=== PATIENT | male | born 1975 | race Caucasian/White ===

== ENCOUNTER 2017-03-21 19:23 | Emergency (ER) | payer MEDICAID ==
[2017-03-21 19:49] VITALS: BP 142/86
--- NOTE | 2017-03-21 20:00 | EDM.PDOC ---
ED HPI GENERAL MEDICAL PROBLEM - General Chief Complaint: General Stated Complaint: SUICIDAL Time Seen by Provider: 03/21/17 19:30 Source of Information: Reports: Patient, Family, Old Records History Limitations: Reports: Intoxication - History of Present Illness INITIAL COMMENTS - FREE TEXT/NARRATIVE: Artem comes to [facility] ED following relapse of drinking alcohol over the past 2 mos. He has lost employment for nonattendance, and did not follow thru with relapse prevention managment including Disulfiram and AA. He completed [facility] treatment in [facility] earlier this year. He also uses cannabis, but denies other drug abuse. He initially reported sxs of suicidal ideation without plan, proximity or lethality. - Related Data Allergies Allergy/AdvReac Type Severity Reaction Status Date / Time No Known Allergies Allergy Verified 03/21/17 19:43 Home Meds: Home Meds LORazepam [Ativan] 1 mg PO Q4H PRN #7 tab 09/25/16 [Rx] Past Medical History - Past Health History Medical/Surgical History: Denies Medical/Surgical History Cardiovascular History: Reports: Heart Murmur Musculoskeletal History: Reports: Back Pain, Chronic Neurological History: Reports: Other (See Below) Other Neuro History: head injury as child Psychiatric History: Reports: Addiction Other Psychiatric History: has alcohol problem since he was 8 years old. - Infectious Disease History Infectious Disease History: Reports: Chicken Pox Social & Family History - Family History Family Medical History: Noncontributory - Tobacco Use Smoking Status *Q: Current Every Day Smoker Years of Tobacco use: 20 Packs/Tins Daily: 0.5 Used Tobacco, but Quit: No Second Hand Smoke Exposure: Yes - Alcohol Use Days Per Week of Alcohol Use: 2 Number of Drinks Per Day: 5 Total Drinks Per Week: 10 - Recreational Drug Use Recreational Drug Use: No Drug Use in Last 12 Months: No Recreational Drug Type: Reports: Marijuana/Hashish - Living Situation & Occupation Living situation: Reports: Occupation: Employed ED ROS GENERAL - Review of Systems Review Of Systems: See Below Constitutional: Reports: Malaise HEENT: Reports: No Symptoms Respiratory: Reports: No Symptoms Cardiovascular: Reports: No Symptoms Endocrine: Reports: No Symptoms GI/Abdominal: Reports: No Symptoms : Reports: No Symptoms Musculoskeletal: Reports: No Symptoms Skin: Reports: No Symptoms Neurological: Reports: Tremors (occur when off ETOH) Psychiatric: Reports: Agitation, Anxiety, Mood Lability Hematologic/Lymphatic: Reports: No Symptoms Immunologic: Reports: No Symptoms ED EXAM, GENERAL - Physical Exam Exam: See Below Exam Limited By: Intoxication General Appearance: Alert, WD/WN, Anxious Eye Exam: Bilateral Eye: Normal Inspection, PERRL Ears: Normal External Exam Nose: Normal Inspection Throat/Mouth: Normal Inspection, Normal Oropharynx Head: Normocephalic Neck: Normal Inspection, Supple Respiratory/Chest: Lungs Clear, Normal Breath Sounds, Chest Non-Tender Cardiovascular: Regular Rate, Rhythm, No Murmur GI/Abdominal: Normal Bowel Sounds, Soft, Non-Tender, No Organomegaly, No Distention, No Mass (Male) Exam: Deferred Rectal (Males) Exam: Deferred Back Exam: Normal Inspection, Full Range of Motion Extremities: Normal Inspection, Normal Range of Motion Neurological: Alert, Oriented, CN II-XII Intact, Normal Gait, No Motor/Sensory Deficits Psychiatric: Anxious Skin Exam: Warm, Dry, Intact Lymphatic: No Adenopathy Course - Vital Signs Text/Narrative:: Artem reported some suicidal ideation without plan, proximity, or lethality. [facility] had a bed available, but he refused treatment, and signed out AMA. Last Recorded V/S: Last Vital Signs Temp 36.8 C 03/21/17 19:30 Pulse 88 03/21/17 19:30 Resp 18 03/21/17 19:30 BP 142/86 H 03/21/17 19:30 Pulse Ox - Orders/Labs/Meds Orders: Active Orders 24 hr Category Date Time Status Patient Status Manage Transfer [TRANSFER] Routine ADT 03/21/17 19:53 Active ACETAMINOPHEN [CHEM] Stat Lab 03/21/17 20:00 Received BASIC METABOLIC PANEL,BMP [CHEM] Stat Lab 03/21/17 20:00 Received Blood Alcohol [ETHANOL BLOOD MEDICAL] [CHEM] Stat Lab 03/21/17 20:00 Received SALICYLATE [CHEM] Stat Lab 03/21/17 20:00 Received TSH ULTRASENSITIVE [CHEM] Stat Lab 03/21/17 20:00 Received Labs: Laboratory Tests 03/21/17 03/21/17 Range/Units 19:45 20:00 WBC 7.6 (4.5-12.0) X10-3/uL RBC 4.61 (4.30-5.75) x10(6)uL Hgb 15.3 (11.5-15.5) g/dL Hct 44.7 (30.0-51.3) % MCV 97.1 H (80-96) fL MCH 33.3 (27.7-33.6) pg MCHC 34.3 (32.2-35.4) g/dL RDW 14.7 (11.5-15.5) % Plt Count 244 (125-369) X10(3)uL MPV 7.5 (7.4-10.4) fL Neut % (Auto) 42.7 L (46-82) % Lymph % (Auto) 45.9 H (13-37) % [place] % (Auto) 8.1 (4-12) % Eos % (Auto) 3 (1.0-5.0) % Baso % (Auto) 1 (0-2) % Neut # (Auto) 3.2 (1.6-8.3) # Lymph # (Auto) 3.5 (0.6-5.0) # [place] # (Auto) 0.6 (0.0-1.3) # Eos # (Auto) 0.2 (0.0-0.8) # Baso # (Auto) 0.1 (0.0-0.2) # Urine Opiates Screen Negative (NEGATIVE) Ur Oxycodone Screen Negative (NEGATIVE) Ur Propoxyphene Screen Negative (NEGATIVE) Ur Barbituates Screen Negative (NEGATIVE) Ur Tricyclics Screen Negative (NEGATIVE) Ur Phencyclidine Scrn Negative (NEGATIVE) Ur Amphetamine Screen Negative (NEGATIVE) Urine MDMA Screen Negative (NEGATIVE) U Benzodiazepines Scrn Negative (NEGATIVE) U Cocaine Metab Screen Negative (NEGATIVE) U Marijuana (THC) Screen Positive H (NEGATIVE) Departure - Departure Time of Disposition: 20:20 Disposition: Against Medical Advice 07 Condition: poor Clinical Impression: Alcohol dependence Qualifiers: Complication of substance-induced condition: uncomplicated - Discharge Information Forms: ED Department Discharge - Problem List & Annotations (1) Alcohol abuse SNOMED Code(s): 58092275 Code(s): F10.10 - ALCOHOL ABUSE, UNCOMPLICATED Status: Acute Current Visit: No Annotation/Comment:: Artem signed out AMA. - Problem List Review Problem List Initiated/Reviewed/Updated: Yes - My Orders Last 24 Hours: My Active Orders 03/21/17 19:53 Patient Status Manage Transfer [TRANSFER] Routine 03/21/17 20:00 ACETAMINOPHEN [CHEM] Stat BASIC METABOLIC PANEL,BMP [CHEM] Stat Blood Alcohol [ETHANOL BLOOD MEDICAL] [CHEM] Stat SALICYLATE [CHEM] Stat TSH ULTRASENSITIVE [CHEM] Stat - Assessment/Plan Last 24 Hours: My Active Orders 03/21/17 19:53 Patient Status Manage Transfer [TRANSFER] Routine 03/21/17 20:00 ACETAMINOPHEN [CHEM] Stat BASIC METABOLIC PANEL,BMP [CHEM] Stat Blood Alcohol [ETHANOL BLOOD MEDICAL] [CHEM] Stat SALICYLATE [CHEM] Stat TSH ULTRASENSITIVE [CHEM] Stat Plan: Follow up with PCP.
[2017-03-21 21:03] LABS: ACETAMINOPHEN < 10 ug/mL (10-30)
== END 2017-03-21 20:25 | disposition left against medical advice (07) ==
LOC: FB.ED 19:23
DX: F10.20 Alcohol dependence, uncomplicated (principal); F17.210 Nicotine dependence, cigarettes, uncomplicated
CPT/HCPCS: 36415; 80048; 80305; 84443; 85025; 99283; G0480

== ENCOUNTER 2017-08-07 00:26 | Emergency (ER) | payer MEDICAID ==
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
[2017-08-07 01:00] VITALS: BP 146/94
== END 2017-08-07 00:53 | disposition home or self-care (01) ==
LOC: FB.ED 00:26
DX: S61.411A Laceration without foreign body of right hand, initial encounter (principal); F17.210 Nicotine dependence, cigarettes, uncomplicated; W25.XXXA Contact with sharp glass, initial encounter
CPT/HCPCS: 99283

== ENCOUNTER 2017-09-13 19:53 | Emergency (ER) | payer MEDICAID ==
--- NOTE | 2017-09-13 21:55 | EDM.PDOC ---
ED HPI GENERAL MEDICAL PROBLEM - General Chief Complaint: Gastrointestinal Problem Stated Complaint: BLOODY STOOL Time Seen by Provider: 09/13/17 20:00 Source of Information: Reports: Patient, Family History Limitations: Reports: No Limitations - History of Present Illness INITIAL COMMENTS - FREE TEXT/NARRATIVE: 42 y.o.w m with a h/o chronic ETOH abuse, came to the ed with his SO to te ed because he noticed off and on blood in his stool, blood mixed up with stool. No N/V/D or dizziness or any other acute medical issues at this time 142/84 pulse 113 temp 36.3 pulse ox 98% Onset Date: 08/16/17 Onset Time: 07:00 Duration: Chronic, Constant, Intermittent (blood in stool) Location: Reports: Abdomen Quality: Reports: Other (no pain.) Severity: Mild Improves with: Reports: Eating Worsens with: Reports: Other (drinking) Context: Reports: Other (chronic ETOH abuse) Associated Symptoms: Reports: No Other Symptoms - Related Data Allergies Allergy/AdvReac Type Severity Reaction Status Date / Time No Known Allergies Allergy Verified 09/13/17 20:03 Home Meds: Home Meds Pantoprazole Sodium [Protonix] 40 mg PO DAILY #30 suspdr.pkt 09/13/17 [Rx] Past Medical History - Past Health History Medical/Surgical History: Denies Medical/Surgical History Cardiovascular History: Reports: Heart Murmur, Hypertension Musculoskeletal History: Reports: Back Pain, Chronic Neurological History: Reports: Concussion, Other (See Below) Other Neuro History: head injury as child Psychiatric History: Reports: Addiction, Psych Hospitalization(s) Other Psychiatric History: has alcohol problem since he was 8 years old. Has been in tx x 3 for meth, pot & alcohol. - Infectious Disease History Infectious Disease History: Reports: Chicken Pox - Past Surgical History Other Cardiovascular Surgeries/Procedures: HTN due to alcohol abuse. GI Surgical History: Reports: Hernia Repair/Other Social & Family History - Family History Family Medical History: Noncontributory - Tobacco Use Smoking Status *Q: Current Every Day Smoker Years of Tobacco use: 30 Packs/Tins Daily: 0.5 Used Tobacco, but Quit: No Second Hand Smoke Exposure: Yes - Caffeine Use Caffeine Use: Reports: None Other Caffeine Use: Occassional - Alcohol Use Days Per Week of Alcohol Use: 7 Number of Drinks Per Day: 20 Total Drinks Per Week: 140 - Recreational Drug Use Recreational Drug Use: Yes Drug Use in Last 12 Months: No Recreational Drug Type: Reports: Marijuana/Hashish, Methamphetamine Recreational Drug Use Frequency: Monthly - Living Situation & Occupation Living situation: Reports: Occupation: Employed ED ROS GENERAL - Review of Systems Review Of Systems: See Below Constitutional: Reports: No Symptoms HEENT: Reports: No Symptoms Respiratory: Reports: No Symptoms Cardiovascular: Reports: No Symptoms Endocrine: Reports: No Symptoms GI/Abdominal: Reports: Hematochezia : Reports: No Symptoms Musculoskeletal: Reports: No Symptoms Skin: Reports: No Symptoms Neurological: Reports: No Symptoms Psychiatric: Reports: No Symptoms Hematologic/Lymphatic: Reports: No Symptoms Immunologic: Reports: No Symptoms ED EXAM, GI/ABD - Physical Exam Exam: See Below Exam Limited By: No Limitations General Appearance: Alert, WD/WN, No Apparent Distress Eyes: Bilateral: Normal Appearance Ears: Normal External Exam Nose: Normal Inspection Throat/Mouth: Normal Inspection Head: Atraumatic, Normocephalic Neck: Normal Inspection, Supple, Non-Tender, Full Range of Motion Respiratory/Chest: No Respiratory Distress, Lungs Clear, Normal Breath Sounds, No Accessory Muscle Use, Chest Non-Tender Cardiovascular: Normal Peripheral Pulses, Regular Rate, Rhythm, No Edema, No Gallop GI/Abdominal Exam: Normal Bowel Sounds, Soft, Non-Tender, No Organomegaly, No Distention, No Abnormal Bruit (Male) Exam: No Hernia Rectal (Males) Exam: Heme - Stool (brown) Back Exam: Normal Inspection, Full Range of Motion Extremities: Normal Inspection, Normal Range of Motion, Non-Tender, No Pedal Edema Neurological: Alert, Oriented, CN II-XII Intact, Normal Cognition, Normal Gait, No Motor/Sensory Deficits Psychiatric: Normal Affect, Normal Mood Skin Exam: Warm, Dry, Intact, Normal Color, No Rash Lymphatic: No Adenopathy Course - Vital Signs Text/Narrative:: 42 y.o.w m with a h/o chronic ETOH abuse, came to the ed with his SO to te ed because he noticed off and on blood in his stool, blood mixed up with stool. No N/V/D or dizziness or any other acute medical issues at this time 142/84 pulse 113 temp 36.3 pulse ox 98% PE: WNWD WM NAD no epigastric tenderness, Stool was brown, heme negative, Pt ambulating well, Ox3 Labs: CBC nl MCV was 101, BMP nl Impression: Hematochezia Tx: Protonix as a prescription Plan: D/C with instructions Last Recorded V/S: Last Vital Signs Temp 37.0 C 09/13/17 20:00 Pulse 113 H 09/13/17 20:00 Resp 20 09/13/17 20:00 BP 144/98 H 09/13/17 20:00 Pulse Ox 98 09/13/17 20:00 - Orders/Labs/Meds Labs: Laboratory Tests 09/13/17 09/13/17 09/13/17 Range/Units 20:50 20:50 20:50 WBC 7.9 (4.5-12.0) X10-3/uL RBC 4.18 L (4.30-5.75) x10(6)uL Hgb 14.9 (11.5-15.5) g/dL Hct 42.3 (30.0-51.3) % MCV 101.2 H (80-96) fL MCH 35.6 H (27.7-33.6) pg MCHC 35.1 (32.2-35.4) g/dL RDW 13.2 (11.5-15.5) % Plt Count 282 (125-369) X10(3)uL MPV 7.8 (7.4-10.4) fL Neut % (Auto) 62.5 (46-82) % Lymph % (Auto) 25.4 (13-37) % [place] % (Auto) 9.4 (4-12) % Eos % (Auto) 2 (1.0-5.0) % Baso % (Auto) 1 (0-2) % Neut # (Auto) 5.0 (1.6-8.3) # Lymph # (Auto) 2.0 (0.6-5.0) # [place] # (Auto) 0.7 (0.0-1.3) # Eos # (Auto) 0.1 (0.0-0.8) # Baso # (Auto) 0.1 (0.0-0.2) # PT 9.9 (8.7-11.1) INR 0.98 (0.89-1.13) Sodium 141 (135-145) mmol/L Potassium 3.8 (3.5-5.3) mmol/L Chloride 103 (100-110) mmol/L Carbon Dioxide 28 (21-32) mmol/L BUN 11 (7-18) mg/dL Creatinine 0.7 (0.70-1.30) mg/dL Est Cr Clr Drug Dosing 121.52 mL/min Estimated GFR (MDRD) > 60 (>60) BUN/Creatinine Ratio 15.7 (9-20) Glucose 105 (80-116) mg/dL Calcium 9.1 (8.6-10.2) mg/dL Departure - Departure Time of Disposition: 21:51 Disposition: Home, Self-Care 01 Condition: Good Clinical Impression: Hematochezia - Discharge Information Prescriptions: Pantoprazole Sodium [Protonix] 40 mg PO DAILY #30 suspdr.pkt Instructions: Stool for Occult Blood Test, Bloody Diarrhea Referrals: Janey Giang PA-C [Primary Care Provider] - Semaj Wong MD [Physician] - Forms: ED Department Discharge Additional Instructions: Please take the Protonix as recommended, please follow up with at [facility] or Dr. Palomino at [facility] for a possible endoscopy. Please come back if your symptoms get worse acutely. Please take daily Thiamine 100 mg & 1 Multivitamin and 1 mg Folic acid daily. Stop drinking.
[2017-09-13] MEDS ORDERED: LORazepam 1 MG Tab PO ONE (22:18)
[2017-09-13] MEDS ORDERED: LORazepam 1 MG Tab ONE (22:20)
[2017-09-13 23:39] VITALS: BP 134/104
== END 2017-09-13 22:25 | disposition home or self-care (01) ==
LOC: FB.ED 19:53
DX: K92.1 Melena (principal); I10 Essential (primary) hypertension; F17.210 Nicotine dependence, cigarettes, uncomplicated; Z79.899 Other long term (current) drug therapy
CPT/HCPCS: 36415; 80048; 82272; 85025; 85610; 99283; A9270

== ENCOUNTER 2019-01-03 23:39 | Emergency (ER) | payer BC, MEDICAID ==
[2019-01-04 00:07] VITALS: BP 149/72
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
--- NOTE | 2019-01-04 10:40 | CR ---
INDICATION: Injury to 4th metacarpal. RIGHT HAND: Three views of the right hand were obtained 01/04/19 - no comparisons. Focal prominent soft tissue swelling is noted overlying the dorsum of the hand at the level of the distal metacarpals. A fracture, dislocation, or other significant bone or joint abnormality was not identified. MTDD
== END 2019-01-04 00:30 | disposition home or self-care (01) ==
LOC: FB.ED 23:39
DX: S16.1XXA Strain of muscle, fascia and tendon at neck level, initial encounter (principal); S60.221A Contusion of right hand, initial encounter; F10.129 Alcohol abuse with intoxication, unspecified; I10 Essential (primary) hypertension; Y04.0XXA Assault by unarmed brawl or fight, initial encounter
CPT/HCPCS: 73130-RT; 99283-25

== ENCOUNTER 2019-04-11 07:10 | Emergency (ER) | payer SELFPAY ==
[2019-04-11] MEDS ORDERED: Lidocaine 2% 5 ML SDV ONE (07:11)
--- NOTE | 2019-04-11 07:59 | EDM.PDOC ---
ED HPI GENERAL MEDICAL PROBLEM - General Chief Complaint: Laceration Stated Complaint: FINGER INJURY Time Seen by Provider: 04/11/19 07:46 Source of Information: Reports: Patient History Limitations: Reports: No Limitations - History of Present Illness INITIAL COMMENTS - FREE TEXT/NARRATIVE: Patient grazed right index finger against siding of a deck [employer], sustained a laceration. Complains of numbness distal to the laceration, no loss of movement. Last Tdap 3 yrs ago. Onset: Today Duration: Hour(s): (1) Location: Reports: Upper Extremity, Right Severity: Mild - Related Data Allergies Allergy/AdvReac Type Severity Reaction Status Date / Time No Known Allergies Allergy Verified 04/11/19 07:16 Home Meds: Home Meds NK [No Known Home Meds] 01/03/19 [History] Past Medical History Cardiovascular History: Reports: Heart Murmur, Hypertension Musculoskeletal History: Reports: Back Pain, Chronic Neurological History: Reports: Concussion, Other (See Below) Other Neuro History: head injury as child Psychiatric History: Reports: Addiction, Psych Hospitalization(s) Other Psychiatric History: has alcohol problem since he was 8 years old. Has been in tx x 3 for meth, pot & alcohol. - Infectious Disease History Infectious Disease History: Reports: Chicken Pox - Past Surgical History Other Cardiovascular Surgeries/Procedures: HTN due to alcohol abuse. GI Surgical History: Reports: Hernia Repair/Other Social & Family History - Family History Family Medical History: Noncontributory - Tobacco Use Smoking Status *Q: Current Every Day Smoker Tobacco Use Within Last Twelve Months: Cigarettes Years of Tobacco use: 30 Packs/Tins Daily: 0.5 - Caffeine Use Caffeine Use: Reports: None Other Caffeine Use: Occassional - Alcohol Use Days Per Week of Alcohol Use: 7 Number of Drinks Per Day: 8 Total Drinks Per Week: 56 - Recreational Drug Use Recreational Drug Use: Yes Recreational Drug Type: Reports: Marijuana/Hashish - Living Situation & Occupation Living situation: Reports: Occupation: Employed ED ROS GENERAL - Review of Systems Review Of Systems: ROS reveals no pertinent complaints other than HPI. ED EXAM, SKIN/RASH Exam: See Below Exam Limited By: No Limitations General Appearance: Alert, WD/WN, No Apparent Distress Ears: Normal External Exam Throat/Mouth: No Airway Compromise Head: Atraumatic, Normocephalic Respiratory/Chest: No Respiratory Distress Peripheral Pulses: 2+: Radial (R) Extremities: Other (2 cm flap laceration palmar aspect of distal right index finger) Neurological: Alert, Normal Cognition, Other (decreased sensation palmar aspect right index finger distal to laceration, motor function intact) Psychiatric: Normal Affect, Normal Mood Skin: Other (as above) ED SKIN PROCEDURES - Laceration/Wound Repair Right Distal Digit - 2nd (Index) Lac/Wound length In cm: 2 Appearance: Subcutaneous Distal NVT: Neuro & Vascular Intact, No Tendon Injury Anesthetic Type: Local Local Anesthesia - Lidocaine (Xylocaine): 1% Plain Local Anesthetic Volume: 2cc Skin Prep: Chlorhexidine (Hibiciens) Exploration/Debridement/Repair: No Foreign Material Found Closed with: Sutures Suture Size: 4-0 # of Sutures: 6 Suture Type: Nylon, Interrupted Drain Placement: No Sterile Dressing Applied: Nurse Tetanus Status Addressed: Yes Complications: No Course - Orders/Labs/Meds Orders: Active Orders 24 hr Category Date Time Status Bacitracin [Bacitracin Oint 1 GM] Med 04/11/19 08:09 Once 1 dose TOP ONETIME ONE Departure - Departure Time of Disposition: 08:11 Disposition: Home, Self-Care 01 Condition: Good Clinical Impression: Laceration of finger, right Qualifiers: Encounter type: initial encounter Finger: index finger Damage to nail status: without damage Foreign body presence: without foreign body Qualified Code(s): S61.210A - Laceration without foreign body of right index finger without damage to nail, initial encounter - Discharge Information *PRESCRIPTION DRUG MONITORING PROGRAM REVIEWED*: No *COPY OF PRESCRIPTION DRUG MONITORING REPORT IN PATIENT LUCIANA: Not Applicable Instructions: Sutured Wound Care Forms: ED Department Discharge Additional Instructions: Apply Bacitracin ointment daily until the wound scabs over. Follow up in 7-10 days for suture removal, sooner if you develop symptoms or signs of infection. - My Orders Last 24 Hours: My Active Orders 04/11/19 08:09 Bacitracin [Bacitracin Oint 1 GM] 1 dose TOP ONETIME ONE - Assessment/Plan Last 24 Hours: My Active Orders 04/11/19 08:09 Bacitracin [Bacitracin Oint 1 GM] 1 dose TOP ONETIME ONE
[2019-04-11] MEDS ORDERED: Bacitracin Oint 1 GM U/D Packet TOP ONE (08:09)
[2019-04-11 08:29] VITALS: BP 150/102
== END 2019-04-11 08:25 | disposition home or self-care (01) ==
LOC: FB.ED 07:10
DX: S61.210A Laceration without foreign body of right index finger without damage to nail, initial encounter (principal); F17.210 Nicotine dependence, cigarettes, uncomplicated; I10 Essential (primary) hypertension; W22.8XXA Striking against or struck by other objects, initial encounter
CPT/HCPCS: 12001; 12011; 99282; J2001

== ENCOUNTER 2023-01-06 17:41 | Emergency (ER) | payer MEDICAID, OTHER ==
[2023-01-06 18:28] LABS: ESTIMATED GFR 108 mL/min (>60)
[2023-01-06 19:49] VITALS: BP 165/101; PULSE 92
== END 2023-01-06 19:12 | disposition home or self-care (01) ==
LOC: FB.ED 17:41
DX: F10.10 Alcohol abuse, uncomplicated (principal); I10 Essential (primary) hypertension; Y90.1 Blood alcohol level of 20-39 mg/100 ml
CPT/HCPCS: 36415; 80053; 80307; 82150; 83690; 85025; 99284

== ENCOUNTER 2023-07-09 20:06 | Emergency (ER) | payer SELFPAY ==
[2023-07-09 21:21] VITALS: BP 160/102; PULSE 94
== END 2023-07-09 21:20 | disposition home or self-care (01) ==
LOC: FB.ED 20:06
DX: S09.90XA Unspecified injury of head, initial encounter (principal); S01.81XA Laceration without foreign body of other part of head, initial encounter; W50.0XXA Accidental hit or strike by another person, initial encounter
CPT/HCPCS: 12011; 99283